=== PATIENT | male | born 1960 | race Caucasian/White ===

== ENCOUNTER 2019-02-22 04:22 | Emergency (ER) | payer OTHER ==
[2019-02-22] MEDS ORDERED: DIPHENHYDRAMINE HCL 50 MG/ML VIAL IV ONE (07:38)
[2019-02-22] MEDS ORDERED: KETOROLAC TROMETHAMINE INJ/PF 30 MG/1 ML SDV IV ONE (07:38)
[2019-02-22] MEDS ORDERED: NORMAL SALINE 1000 ML 1,000 ML IV ONE (07:38)
[2019-02-22] MEDS ORDERED: PROCHLORPERAZINE EDISYLATE INJ 10 MG/2 ML VIAL IV ONE (07:38)
[2019-02-22] MEDS ORDERED: SULFAMETHOXAZOLE/TRIMETHOPRIM 800-160 MG TABLET PO ONE (08:01)
[2019-02-22 09:02] VITALS: BP 127/73
--- NOTE | 2019-02-22 14:04 | ER Document Report ---
Entered by ANANYA VIVAS SCRIBE 02/22/19 0749 Acting as scribe for:VALERIE GRIER MD ED General - General Chief Complaint: Headache Stated Complaint: HEADACHE Time Seen by Provider: 02/22/19 07:29 Mode of Arrival: Ambulatory Notes: Patient is a 58-year-old male that presents to the emergency department complaining of a migraine headache. Patient states that the migraine woke him up this morning at 01:00. Patient states that his last migraine headache was around one month ago. Patient states that his headache today is similar to previous migraines, but the pain is much worse today than normal. Patient states he flew here from the [facility] yesterday with several plane changes so he attributes this headache to lack of sleep. Patient states that the migraine started on the left side of his head, but currently radiates across his entire head. Patient states that he is also experiencing intermittent neck pain that he describes as "throbbing". TRAVEL OUTSIDE OF THE [place] IN LAST 30 DAYS: No COUNTRY TRAVELED TO/FROM: [facility] - Related Data Allergies/Adverse Reactions: No Known Allergies Allergy (Verified 11/17/15 09:02) Past Medical History - General Information source: Patient - Social History Smoking Status: Never Smoker Frequency of alcohol use: None Drug Abuse: None Family History: Reviewed & Not Pertinent - Past Medical History Cardiac Medical History: Reports: Hx Hypertension Neurological Medical History: Reports: Hx Migraine Past Surgical History: Reports: Hx Orthopedic Surgery - back - Immunizations Hx Diphtheria, Pertussis, Tetanus Vaccination: Yes Review of Systems - Review of Systems Constitutional: No symptoms reported EENT: No symptoms reported Cardiovascular: No symptoms reported Respiratory: No symptoms reported Gastrointestinal: No symptoms reported Genitourinary: No symptoms reported Male Genitourinary: No symptoms reported Musculoskeletal: See HPI, Neck pain Skin: See HPI, Lesions - right back Hematologic/Lymphatic: No symptoms reported Neurological/Psychological: See HPI, Headaches - migraine -: Yes All other systems reviewed and negative Physical Exam - Vital signs Vitals: Temp Pulse Resp BP Pulse Ox 97.7 F 58 L 19 133/113 H 98 02/22/19 04:25 02/22/19 04:25 02/22/19 04:25 02/22/19 04:25 02/22/19 04:25 - Notes Notes: Physical Exam: General: Alert, appears well, photophobic. HEENT: Normocephalic. Atraumatic. PERRL. Extraocular movements intact. Oropharynx clear. Neck: Supple. Posterior cervical musculature tenderness with palpation, scapular musculature tenderness to palpation. Respiratory: No respiratory distress. Clear and equal breath sounds bilaterally. Cardiovascular: Regular rate and rhythm. Abdominal: Normal Inspection. Non-tender. No distension. Normal Bowel Sounds. Back: Non-tender. Right flank lesion consistent with folliculitis. Area drained with small amount of purulent drainage expressed. Extremities: Moves all four extremities. Upper extremities: Normal inspection. Normal ROM. Lower extremities: Normal inspection. No edema. Normal ROM. Neurological: Normal cognition. AAOx4. Normal speech. Psychological: Normal affect. Normal Mood. Skin: Warm. Dry. Normal color. Course - Re-evaluation Re-evalutation: 02/22/19 08:57 The patient is presently sleeping soundly and snoring. He was awakened for re- exam. He states his headache is gone. Palpating the temporal muscles is minimally tender at this time. - Vital Signs Vital signs: Temp Pulse Resp BP Pulse Ox 97.9 F 79 14 127/73 H 98 02/22/19 09:00 02/22/19 09:00 02/22/19 05:53 02/22/19 09:00 02/22/19 09:00 Discharge - Discharge Clinical Impression: Headache Qualifiers: Headache type: tension-type Headache chronicity pattern: acute headache Intractability: not intractable Qualified Code(s): G44.209 - Tension-type headache, unspecified, not intractable Condition: Stable Disposition: HOME, SELF-CARE Additional Instructions: Tension Headache Your problem has been diagnosed as muscle tension headache. This very common type of headache occurs because of tightness in the muscles of the head and neck. The cause may be neck or jaw joint problems, but most commonly the cause is emotional stress. The headache may last hours or days. The treatment of uncomplicated tension headaches is rest and pain medication. Often, the newer antiinflammatory pain medications are prescribed, as these also decrease the irritability of the painful tissues. Muscle relaxers, cold packs, or warm packs are sometimes helpful. Anti-anxiety medication or narcotics are sometimes needed temporarily, but are best avoided in the long run. Your doctor has evaluated your headache problem, and finds no evidence of a serious health problem as a cause for the headache. If your headache becomes more severe, or if new symptoms develop (such as fever, stiff neck, vomiting, or decreasing alertness) you should be re-examined by the physician. Your examination suggest that this was a muscle tension type headache today. There may have been some migraine headache component to this headache also. For today you should rest and sleep in a cool, quiet, dark room. You should follow-up with your primary care provider or return to the emergency room if your headaches worsen or do not improve over the next 1 to 2 days. RETURN TO THE EMERGENCY ROOM IF ANY NEW OR WORSENING SYMPTOMS. Forms: Return to Work Scribe Attestation: 02/22/19 09:00 I personally performed the services described in the documentation, reviewed and edited the documentation which was dictated to the scribe in my presence, and it accurately records my words and actions. I personally performed the services described in the documentation, reviewed and edited the documentation which was dictated to the scribe in my presence, and it accurately records my words and actions.
== END 2019-02-22 09:03 | disposition home or self-care (01) ==
LOC: ER 04:22
DX: G44.209 Tension-type headache, unspecified, not intractable (principal); M54.2 Cervicalgia; I10 Essential (primary) hypertension; L98.9 Disorder of the skin and subcutaneous tissue, unspecified
CPT/HCPCS: 99283; 96361; 96374; 96375; J1200; J1885; J0780; J7030